=== PATIENT | female | born 1955 ===

== ENCOUNTER → 2017-08-31 | Outpatient (CLI) | payer BC, OTHER ==
[~2017-08-31] VITALS: Ht 170.2 cm; Wt 93.0 kg
[~2017-08-31] MED LIST: ASPIR 8181 MG PO; CYMBALTA60 MG PO; HYDROCHLOROTHIA25 M2 PO; OMEGA-31000 M1 PO; PRAVACHOL40 MG PO; VITAMIN E400 UNIT PO
--- NOTE | ~2017-08-31 | P ---
[facility] [place] [address] PROCEDURE REPORT Name: JOSE QUIROZ Room #: REG [facility]#: [id number] Admission: 08/31/17 Attend Phys: Gilles Gregory MD Discharge: Date of : 59 Report #: [id number] THIS REPORT FOR: //name// CC: Gilles Quan BRIEF HISTORY: The patient is a 62-year-old woman with a history of colon adenomas with last colonoscopy in November 2010, several adenomas were found at that time and followup colonoscopy was recommended in 3 years. PREOPERATIVE DIAGNOSIS: History of colon polyps. POSTOPERATIVE DIAGNOSES: 1. Small ulcerated hepatic mass, suspicious for malignancy. 2. Polyp at 60 cm. 3. Polyp at 30 cm. ESTIMATED BLOOD LOSS: 3 mL. PROCEDURE: Colonoscopy to cecum and terminal ileum with snare polypectomy, biopsy, and Katie ink injection. FINDINGS: Prior to propofol sedation, the procedure of colonoscopy was discussed with the patient as well as potential risks, benefits, and complications. She indicates she understands and desires to proceed. With the patient in left lateral decubitus position, digital examination was completed, which revealed no abnormalities. Subsequently, the C2cube video colonoscope was introduced in the rectum, advanced under direct vision to the cecum. This was done with minimal difficulty. The cecum was identified by the ileocecal valve and the appendiceal orifice. I was able to briefly visualize the distal segment of the terminal ileum, which was inspected and noted to be unremarkable. At that point, the scope was slowly withdrawn and careful circumferential views were obtained. Upon slow withdrawal of the scope, the prep was excellent. The mucosa was within normal limits, normal vascular pattern, and normal light reflex. As we withdrew the scope in the hepatic flexure, there was a small mass lesion. It involved no more than one-fourth . It was nonobstructing. However, it was ulcerated and has a malignant appearance. Multiple biopsies were obtained. Two Katie ink tattoo injections were applied on opposite sites of the lesion. The scope was further withdrawn and at 60 cm, a diminutive polyp was seen and removed by biopsy. As we withdrew the scope further, at 30 cm, there was a sessile polyp in the range of about 7-8 mm, removed by cold snare polypectomy. However, it was noted there were other diminutive polyps in this area. There were multiple and they all had a hyperplastic appearance. All these polyps may be hyperplastic. It was also noted she had hyperplastic polyps on her previous colon exam. The scope was [address] [address] PROCEDURE REPORT Name: JOSE QUIROZ Room #: REG [facility].#: [id number] Admission: 08/31/17 Attend Phys: Gilles Gregory MD Discharge: Date of : 59 Report #: [id number] withdrawn in the rectum. Upon retroflexion, no abnormalities were detected in the rectum. Scope was withdrawn. The patient tolerated the procedure well. CONDITION OF THE PATIENT UPON DISCHARGE: Following procedure, the patient drowsy and arousable, she will be discharged home when fully ambulatory. INSTRUCTIONS TO THE PATIENT AND FAMILY AT THE TIME OF DISCHARGE: The patient with ulcerated mass lesion at the hepatic flexure. It is not a very large lesion, it is not obstructing, but has a malignant appearance. We will follow up on biopsies and then make further recommendations. However, the patient most certainly will need resection of this lesion. Last colonoscopy was in November 2010. Withdrawal time from the cecum was 19 minutes 27 seconds. <ELECTRONICALLY SIGNED> By: Gilles Gregory MD 09/03/17 [id number] Gilles Grgeory MD /nt
--- NOTE | ~2017-08-31 | S ---
[facility] [place] [address] SURGICAL PATH RPT PROCEDURE Name: JOSE MONGE Room #: REG [facility]..#: [id number] Admission: 08/31/17 Date of : 59 Discharge: Report #: [id number] Path Case #: [id number] PATHOLOGY REPORT COLLECTION DATE: 08/31/2017 RECEIVED DATE: 08/31/2017 SUBMITTING PHYS: Dr. Gilles Gregory OTHER PHYS: Dr. Susan Quan SPECIMEN(S) RECEIVED: A.Mass at hepatic flexure B.Polyp at 60cm C.Polyp at 30cm * * * * * * * * * * * * FINAL DIAGNOSIS: A. Mass, at hepatic flexure, endoscopic biopsy: - 1 FRAGMENT SHOWING INVASIVE ADENOCARCINOMA. 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 B. Polyp, at 60 cm, endoscopic biopsy: - Lymphoid aggregate and hyperplastic polyp. - Negative for dysplasias. C. Polyp, at 30 cm, endoscopic biopsy: - Hyperplastic polyp. - Negative for dysplasia. COMMENT: Part A was co-reviewed by Dr. Ashley De La Cruz who concurs with my diagnosis. Findings of this case are discussed with Dr. Gilles Gregory at approximately 1:05 p.m. on 09/03/17. MSI markers are not ordered on block A due to the very focal nature of invasive malignancy. Testing can be performed on the resection specimen when more tumor becomes available. (IUV:rlyvette; 09/03/2017) PATHOLOGIST: Marlen Gonzales M.D. REPORT ELECTRONICALLY SIGNED BY: Marlen Gonzales M.D. DATE/TIME: 09/03/2017 16:18 * * * * * * * * * * * * GROSS PATHOLOGY: A. The specimen is received in formalin, labeled "Jose Monge and biopsy of mass at hepatic flexure", are multiple romero soft tissue 0.7 x 0.5 x 0.2 cm in aggregate, entirely submitted in A1. [facility] [place] [address] SURGICAL PATH RPT PROCEDURE Name: JOSE MONGE Room #: REG [facility].#: [id number] Admission: 08/31/17 Date of : 59 Discharge: Report #: [id number] Path Case #: [id number]. The specimen is received in formalin, labeled "Jose Monge and polyp at 60 cm", is a romero soft tissue 0.5 cm in greatest dimension, entirely submitted in B1. C. The specimen is received in formalin, labeled "Jose Monge and polyp at 30 cm", is a romero soft tissue 1.2 x 0.3 cm, inked black, bisected and entirely submitted in C1. (SWS; 08/31/2017) CLINICAL HISTORY: History of polyps, ulcerative mass at hepatic flexure INITIAL CPT CODE(S): A; 62604 B; 46632 C; 84595 Professional services performed by [facility] at [facility] [place] [address] Technical services performed by [facility] at [address] [place] [address], [address], [place] [address]. [facility] [address] [place] [address] PHONE: [phone] DIRECTOR: Alejandro Marreor M.D. * * * END OF REPORT * * *
== END ==
LOC: EDBD → GI 08:46
DX: Z09 Encounter for follow-up examination after completed treatment for conditions other than malignant neoplasm (principal); D12.3 Benign neoplasm of transverse colon; K63.5 Polyp of colon; F17.210 Nicotine dependence, cigarettes, uncomplicated; F32.9 Major depressive disorder, single episode, unspecified; I10 Essential (primary) hypertension; E78.4 Other hyperlipidemia; Z79.899 Other long term (current) drug therapy
CPT/HCPCS: 62110; 62900